=== PATIENT | female | born 1970 | race Caucasian/White ===

== ENCOUNTER 2021-12-01 12:07 | Emergency (ER) | payer MEDICAID ==
[2021-12-01] VITALS (8 sets, daily range): BP systolic 127–143; BP diastolic 81–89
[~2021-12-01] VITALS: Ht 160 cm; Wt 75.9 kg
[2021-12-01] MEDS ORDERED: BACTRIM DS1 TAB PO (14:51)
[2021-12-01] MEDS ORDERED: OMNICEF300 M1 PO (14:51)
== END 2021-12-01 15:00 | disposition home or self-care (01) ==
LOC: ED 12:07
DX: L03.221 Cellulitis of neck (principal); C85.90 Non-Hodgkin lymphoma, unspecified, unspecified site

== ENCOUNTER 2022-07-27 15:31 | Emergency (ER) | payer MEDICAID ==
[~2022-07-27] VITALS: Ht 160 cm; Wt 76.4 kg
[2022-07-27] VITALS (14 sets, daily range): BP systolic 110–144; BP diastolic 58–96
[~2022-07-27 15:31] MED LIST: BACTRIM DS1 TAB PO; OMNICEF300 M1 PO
[2022-07-27] MEDS ORDERED: PAXLOVID 10 X 11 TAB PO (18:17)
[2022-07-27] MEDS ORDERED: ONDANSETRON4 MG PO (18:17)
[2022-07-27 18:38] LABS: BASO% 0.3 % (0-3); HEMATOCRIT 41.1 % (37.0-47.0); HEMOGLOBIN 13.8 g/dl (12.0-16.0); IMMATURE GRANULOCYTES 0.3 % (0.0-5.0); LYMPH% 13.6 % (15-41); MEAN CELL VOLUME 86.2 fL CALC (80.0-100.0); MEAN CORPUSCULAR HGB 28.9 pG CALC (26.0-32.0); MEAN CORPUSCULAR HGB CONC 33.6 g/dL CAL (32.0-36.0); MONO% 8.7 % (2-13); NEUT# 2.56 thou/uL (2.00-7.15); NEUT% 77.1 % (42-76); RED BLOOD COUNT 4.77 mill/uL (4.20-5.60); RED CELL DISTRI WIDTH 12.2 % (11.5-15.5)
[2022-07-27 19:11] LABS: ALBUMIN 4.5 g/dL (3.2-5.0); ALKALINE PHOSPHATASE 59 u/l (38-126); ANION GAP 13 (6-22 (CALC)); BILIRUBIN, TOTAL 0.2 mg/dL (0.02-1.3); BUN 15 mg/dL (7-17); BUN/CREATININE RATIO 14 (12-20 (CALC)); CARBON DIOXIDE 21 mmol/l (22-30); CHLORIDE 104 mmol/l (95-108); GFR FOR AFR.AMER. > 60 ML/MIN (>=60 (CALC)); GFR OTHER RACES 59 ML/MIN (>=60 (CALC)); POTASSIUM 3.6 mmol/l (3.5-5.1); SGOT/AST 37 u/l (14-36); SODIUM 135 mmol/l (137-146); TOTAL PROTEIN 7.1 g/dL (6.3-8.2)
== END 2022-07-27 19:40 | disposition home or self-care (01) ==
LOC: ED 15:31
PROVIDERS: Emergency Medicine
DX: U07.1 COVID-19 (principal); R52 Pain, unspecified; R11.0 Nausea; R50.9 Fever, unspecified; R51.9 Headache, unspecified; R42 Dizziness and giddiness; C85.90 Non-Hodgkin lymphoma, unspecified, unspecified site